=== PATIENT | male | born 1960 | race Caucasian/White ===

== ENCOUNTER 2019-05-18 05:38 | Day surgery (SDC) | payer OTHER ==
[2019-05-18] MEDS ORDERED: SURFAK240 M1 PO (09:48)
[2019-05-18] MEDS ORDERED: PERCOCET 5-3251 EACH PO (09:48)
[2019-05-18] MEDS ORDERED: POLY119PG PO (09:48)
[2019-05-18] MEDS ORDERED: NEURONTIN800 MG PO (09:49)
== END 2019-05-18 15:10 | disposition home or self-care (01) ==
LOC: CIR.AMB 05:38
DX: K40.20 Bilateral inguinal hernia, without obstruction or gangrene, not specified as recurrent (principal); K42.9 Umbilical hernia without obstruction or gangrene

== ENCOUNTER 2021-01-17 10:37 | Emergency (ER) | payer OTHER ==
[~2021-01-17] VITALS: Ht 175.3 cm; Wt 74.8 kg
[~2021-01-17 10:37] MED LIST: NEURONTIN800 MG PO; PERCOCET 5-3251 EACH PO; POLY119PG PO; SURFAK240 M1 PO
== END 2021-01-17 16:04 | disposition home or self-care (01) ==
LOC: ER 10:37
DX: K59.09 Other constipation (principal); R10.32 Left lower quadrant pain

== ENCOUNTER 2021-06-21 08:00 | Outpatient (CLI) | payer OTHER | END 2021-06-21 08:30 | disposition home or self-care (01) | LOC: PPH VACUNA 08:00 | PROVIDERS: ATTEND Emergency Medicine Pediatric Emergency Medicine | DX: Z23 Encounter for immunization (principal) ==

== ENCOUNTER 2021-11-28 08:00 | Outpatient (CLI) | payer OTHER | END 2021-11-28 08:30 | disposition home or self-care (01) | LOC: PPH VACUNA 08:00 | PROVIDERS: ATTEND Emergency Medicine Pediatric Emergency Medicine | DX: Z23 Encounter for immunization (principal) ==

== ENCOUNTER 2023-03-25 14:17 | Outpatient (CLI) | payer OTHER | END 2023-03-25 14:35 | disposition home or self-care (01) | LOC: RAD 14:17 | PROVIDERS: ATTEND Orthopaedic Surgery | DX: M79.641 Pain in right hand (principal) ==

== ENCOUNTER 2023-07-02 14:01 | Outpatient (CLI) | payer OTHER | END 2023-07-02 14:05 | disposition home or self-care (01) | LOC: NUCLEAR 14:01 | PROVIDERS: ATTEND Orthopaedic Surgery | DX: M81.0 Age-related osteoporosis without current pathological fracture (principal) ==

== ENCOUNTER 2023-07-06 10:48 | Outpatient (CLI) | payer OTHER | END 2023-07-06 10:49 | disposition home or self-care (01) | LOC: LAB 10:48 | PROVIDERS: ATTEND Orthopaedic Surgery | DX: M85.9 Disorder of bone density and structure, unspecified (principal); E83.42 Hypomagnesemia; E56.1 Deficiency of vitamin K ==

== ENCOUNTER 2024-06-02 10:11 | Outpatient (CLI) | payer OTHER | END 2024-06-02 10:23 | disposition home or self-care (01) | LOC: SONOGRAMA 10:11 | PROVIDERS: ATTEND Urology | DX: N40.0 Benign prostatic hyperplasia without lower urinary tract symptoms (principal); R33.9 Retention of urine, unspecified; R31.0 Gross hematuria ==

== ENCOUNTER 2025-02-01 07:45 | Outpatient (CLI) | payer OTHER | END 2025-02-01 07:46 | disposition home or self-care (01) | LOC: RAD 07:45 | DX: R91.8 Other nonspecific abnormal finding of lung field (principal) ==

== ENCOUNTER 2025-05-08 09:00 | Inpatient (IN) | payer OTHER ==
[~2025-05-08] VITALS: Ht 176.5 cm; Wt 76.2 kg
[2025-05-08] MEDS ORDERED: RAPAFLO8 MG PO (10:20)
[2025-05-08 10:50] VITALS: BP 137/78
[2025-05-08 11:00] LABS: BASO % 0.8 % (0.1-1.2); EOS # 0.00 (0.04-0.54); EOS % 0.0 % (0.7-7.0); LYMPH # 1.10 (1.18-3.74); LYMPH % 43.3 % (19.3-53.1); MEAN PLATELET VOLUME 12.20 fl (9.4-12.4); MONO # 0.31 (0.24-0.82); NEUT # 1.11 (1.56-6.13); NEUT % 43.7 % (34.0-71.1); RED CELL DISTRIBUTION WIDTH 12.4 % (11.6-14.4)
[2025-05-08 11:04] LABS: MONO % 12.2 % (4.7-12.5)
[2025-05-08 11:07] VITALS: BP 137/85
[2025-05-08 11:17] LABS: URINE APPEARANCE Cloudy; URINE BILIRRUBIN Negative (NEGATIVE); URINE BLOOD Small; URINE COLOR Yellow; URINE GLUCOSE Negative (NEGATIVE); URINE KETONE Negative (NEGATIVE); URINE LEUKOCYTE Large; URINE NITRATE Negative; URINE PROTEIN Negative (NEGATIVE); URINE UROBILINOGEN 0.2 E.U./dl
[2025-05-08 11:17] LABS: COVID-19 AG NEGATIVE (NEGATIVE)
[2025-05-08 11:18] LABS: URINE BACTERIA 1144.7 uL (0.0-1933); URINE EPITHELIAL CELLS 3.3 uL (0.0-38.8); URINE RBC 7.1 uL (0.0-20.8); URINE WBC 1816.2 uL (0.0-23.2)
[2025-05-08 11:19] LABS: URINE CAST 0.00 uL (0.0-1.40)
[2025-05-08 11:23] LABS: INR 1.04
[2025-05-08 11:59] LABS: BUN CREA RATIO 22.0 (7.0-25.0); CREATININE SERUM 1.0 mg/dL (0.70-1.30); GFR 75.23; GLUCOSE FASTING 96.0 mg/dL (65-100); OSMOLALITY SERUM 288.0 MOSM/KG (275-295)
[2025-05-12] MEDS ORDERED: ENOXAPARIN SODIUM 40 MG/0.4 ML SYRINGE SUBCUTANEO ONE (06:57)
[2025-05-12] MEDS ORDERED: VANCOMYCIN HCL 1,000 MG VIAL ONE ×2 (08:23→20:21)
[2025-05-12] MEDS ORDERED: SUGAMMADEX SODIUM 200 MG/2 ML VIAL IV ONE (11:52)
[2025-05-12] MEDS ORDERED: DEXTROSE 5 %-0.45 % SOD CHLORD 1,000 ML IV SCH (12:23)
[2025-05-12] MEDS ORDERED: ONDANSETRON HCL 2 MG/ML VIAL IV PRN (12:30)
[2025-05-12] MEDS ORDERED: SIMETHICONE 125 MG CAPSULE PO SCH (13:00)
[2025-05-12] MEDS ORDERED: DOCUSATE SODIUM 100MG CAP PO SCH (17:00)
[2025-05-12] MEDS ORDERED: VANCOMYCIN HCL 1,000 MG VIAL IV SCH (21:00)
[2025-05-13 00:57] VITALS: BP 127/69; O2SAT 100
[2025-05-13 08:00] VITALS: BP 118/75; O2SAT 97
[2025-05-13] MEDS ORDERED: VANCOMYCIN HCL 1,000 MG VIAL ONE ×3 (08:08→16:21)
[2025-05-13 08:13] LABS: BASO % 0.2 % (0.1-1.2); EOS # 0.00 (0.04-0.54); EOS % 0.0 % (0.7-7.0); LYMPH # 1.04 (1.18-3.74); LYMPH % 18.4 % (19.3-53.1); MEAN PLATELET VOLUME 12.30 fl (9.4-12.4); MONO # 0.85 (0.24-0.82); NEUT # 3.72 (1.56-6.13); NEUT % 65.9 % (34.0-71.1); RED CELL DISTRIBUTION WIDTH 12.1 % (11.6-14.4)
[2025-05-13 08:14] LABS: MONO % 15.1 % (4.7-12.5)
[2025-05-13 08:41] LABS: BUN CREA RATIO 10.0 (7.0-25.0); CREATININE SERUM 1.13 mg/dL (0.70-1.30); GFR 65.13; GLUCOSE FASTING 89.0 mg/dL (65-100); OSMOLALITY SERUM 278.0 MOSM/KG (275-295)
[2025-05-13 16:00] VITALS: BP 134/89; O2SAT 99
[2025-05-14 00:15] VITALS: BP 133/81; O2SAT 100
[2025-05-14] MEDS ORDERED: VANCOMYCIN HCL 1,000 MG VIAL ONE (07:41)
[2025-05-14 07:50] VITALS: BP 138/87; O2SAT 95
== END 2025-05-14 13:55 | disposition home or self-care (01) | DRG 661 ==
LOC: O/R 05-12 06:00 → SURH 05-12 09:00 → SURG 05-12 15:34
PROVIDERS: ADMIT Urology; ATTEND Urology
PROC: 0VB08ZZ Excision of Prostate, Via Natural or Artificial Opening Endoscopic (ICD-10-PCS; 2025-05-12)
PROC: 0TBB8ZZ Excision of Bladder, Via Natural or Artificial Opening Endoscopic (ICD-10-PCS; 2025-05-12)
PROC: 8E0W4CZ Robotic Assisted Procedure of Trunk Region, Percutaneous Endoscopic Approach (ICD-10-PCS; 2025-05-12)
PROC: 0T788DZ Dilation of Bilateral Ureters with Intraluminal Device, Via Natural or Artificial Opening Endoscopic (ICD-10-PCS; principal; 2025-05-12 09:30)
DX: N32.3 Diverticulum of bladder (principal); N40.0 Benign prostatic hyperplasia without lower urinary tract symptoms; Z90.79 Acquired absence of other genital organ(s)
CPT/HCPCS: 52332; 52450; 51525; S2900

== ENCOUNTER 2025-05-30 08:30 | Outpatient (CLI) | payer OTHER ==
[~2025-05-30 08:30] MED LIST changes: +RAPAFLO8 MG PO
== END 2025-05-30 08:36 | disposition home or self-care (01) ==
LOC: SONOGRAMA 08:30
PROVIDERS: ATTEND Urology
DX: R31.1 Benign essential microscopic hematuria (principal)